=== PATIENT | male | born 1940 | race Caucasian/White ===

== ENCOUNTER → 2019-01-18 09:39 | Outpatient (CLI) | payer MEDICARE, OTHER, SELFPAY ==
--- NOTE | 2019-01-18 14:46 | PM.TREADMILL ---
Cardiac Stress Test Report Referral & Results Date Patient Seen: 01/18/19 Requesting provider: Teddy Preciado Indication: Coronary disease Rest ECG: Right bundle branch block Procedure Note: Today following both written and verbal informed consent the patient was exercised according to a standard Maicol protocol patient went for a total of for minutes 3 seconds achieving a maximum heart rate of 130 maximum systolic blood pressure of 200. This is approximately 4.6 METS. Exercise was terminated at this point because of patient unable to continue any faster or longer. Patient actually completed 4 minutes at stage I Maicol protocol, did not go to stage II because of fatigue and inability to keep up. Patient was also given Cardiolite through a previously started Hep-Lock IV by the diagnostic imaging staff approximately 1 minute prior to the cessation of exercise. No ST-T segment changes identified In recovery had occasional PVCs including ventricular couplets that were asymptomatic Normal heart rate and blood pressure response to exercise Functional aerobic impairment rates about 30% on the sedentary scale Impression: No ECG evidence of ischemia in patient with baseline ECG abnormalities as above Please see perfusion imaging report as well Please note: Actual ECG tracings can be found in the PACS system.
--- NOTE | 2019-01-18 18:41 | DI.NM.S_ITS ---
DATE OF SERVICE: 01/18/2019 PROCEDURE: Exercise perfusion study. INDICATIONS: Coronary artery disease, hypertension, underlying right bundle branch block. RADIOPHARMACEUTICAL: 24.9 mCi technetium-99m Myoview IV was injected at stress and 13.0 mCi technetium-99m Myoview IV was injected at rest. CARDIAC STRESS: This is a 1-day protocol study. Patient underwent exercise perfusion study under the supervision of an attending staff. He walked on Maicol protocol for 4 minutes 03 seconds achieved 94% of target heart rate with normal blood pressure response. He was unable to go faster or longer. Hence, it was discontinued. 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 During stress, there was no convincing ischemic changes. Occasional PVCs and ventricular couplets seen without any ventricular tachycardia. It was predominantly seen during recovery. RAW DATA: There is increased subdiaphragmatic activity. Patient's weight is 255 pounds. GATED STUDY: Stress LV ejection fraction 71% without any obvious wall motion abnormalities. Resting end-diastolic volume is 158 mL. TID ratio is 0.99, which is within normal limits. Lung/heart ratio is 0.27, which is within normal limits. MYOCARDIAL PERFUSION SCAN: Stress supine and resting supine images revealed raipg-xw-kfqzyexi sized losj-gu-neslvsdhtd decreased perfusion of inferior wall, inferior apex which got resolved during prone images suggestive of diaphragmatic tissue attenuation artifact. CONCLUSION: I will call this study likely a normal myocardial perfusion study with evidence of diaphragmatic tissue attenuation artifact which got resolved during prone images. During prone images, no convincing ischemia infarction pattern. Poor exercise tolerance. Patient has underlying right bundle branch block, left anterior fascicular block, and first-degree atrioventricular (AV) block. Patient had perfusion study in 04/2015. At that time, patient has mild inferolateral ischemia. However, in this study I don't see any obvious reversible ischemia. Clinical correlation is recommended. CareyJules perales - DOROTHY/ki/ doc#: [id number]/job#: [id number] dd: 01/18/2019 17:00:00 dt: 01/18/2019 18:11:00 DICTATING MD/COPIES TO: Valencia Ashton MD COPIES MNE: [email or web address]
== END ==
PROVIDERS: PCP Family Medicine Geriatric Medicine; Visit Provider Family Medicine Geriatric Medicine
DX: I25.10 Atherosclerotic heart disease of native coronary artery without angina pectoris (principal); I10 Essential (primary) hypertension
CPT/HCPCS: 78452; 93016; 93017; 93018; A9502